=== PATIENT | female | born 1940 | race Hispanic/Latino ===

== ENCOUNTER 2017-07-12 21:47 | Inpatient (IN) | payer BC, MEDICARE ==
[2017-07-12 11:29] VITALS: BMI 25.7
--- NOTE | 2017-07-12 22:04 | ED PDOC ---
Psych Transfer Clearance - Clearance Statement Clearance Statement: Reviewed vital signs, lab results and transfer papers. Patient clinically stable for psychiatric admission.
--- NOTE | 2017-07-13 00:17 | PCM.BM ---
<Jesu Gutierrez - Last Filed: 07/13/17 00:51> Treatment Plan Problems - Problems identified on initial assessmt Visual Hallucinations Date Initiated: 07/13/17 Time Initiated: 00:16 Assessment reference: NA Status: Active Treatment assets and liabiliti Patient Assests: adapts well, cooperative, good support system, negotiates basic needs Patient Liabilities: medical problems, imparied memory, visual impairment - Milieu Protocol Maintain good personal hygiene: daily Encourage regular showers, daily Remind patient to perform daily oral care, daily Assist patient to perform ADL's Maintain personal safety: every shift Educate patient to report safety concerns to staff, every shift Monitor environment for contraband/sharps Medication safety: Monitor for expected outcome, potential side effects: every shift, Assess barriers to learning: every shift, Assess readiness for medication education: every shift <Saskia Broussard - Last Filed: 07/14/17 12:46> - Diagnosis (1) Schizophrenia Status: Acute Interventions: Medication management, Individual and group therapy, Psychoeducation 07/14/17 12:46 <Leona Pan - Last Filed: 07/14/17 14:58> Family Contact Family contact: Patient agrees to contact Family contact name: Song Dorman (brother) - Outside Agency Dr. Butch Lr MD Care involvment: Information-sharing Agency contact number: [phone] - Goals for Treatment Patient goals for treatment: Pt to be encouraged to attend activity and clinical groups 3-5x per week to decrease symptoms of paranoia, delusions and employ reality testing. Pt to be encouraged to participate in group milieu to develop coping skills to reduce psychiatric hospitalizations and further decompensation. Coordinate discharge resources needs by providing referral for psychiatric treatment follow up in the community. Discharge/Continuing Care - Education Needs Education Needs: Family Medication, Family Diagnosis/Disease Process, Family Coping Skills, Family Placement options, Family Community resources, Family Personal Hygiene/Grooming, Family Aftercare Safety Plan, Patient Medication, Patient Diagnosis/Disease Process, Patient Coping Skills, Patient Placement options, Patient Community resources, Patient Personal Hygiene/Grooming, Patient Aftercare Safety Plan - Discharge Discharge Criteria: Tolerates medication w/o severe side effects, Free of paranoid thoughts, Normal sleep pattern, Ability to care for self, Reduction of target symptoms Discharge to:: Home, With Family - Additional Comments 07/14/17 14:53 Pt seen and discussed in team meeting. Reason for admission discussed. Pt's progress and bx on unit discussed. Pt's medical and social issues discussed. Pt' s medications reviewed and discussed. Pt presents with disorganized and paranoid thought process. Pt is nonlinear and rambling speech. Pt requires frequent re-direction and re-assurance. Tx plan reviewed and discussed, pt is agreeable. Pt signed autho for marketing copywriter to contact brotherSong for additional collateral information. - Treatment Team Participation Discussed with Family/SO: No (Will be contacted via telephone) Was Patient/Family/SO present at Treatment Team Meeting: Yes
[2017-07-13] MEDS ORDERED: Magnesium Hydroxide Susp 30 ml UD PO PRN (00:57)
[2017-07-13] MEDS ORDERED: Bismuth Subsalicylate 262 mg/15 ml Sus (240 ml) PO PRN (00:57)
[2017-07-13 11:36] LABS: T4 10.7 ug/dl (5.5-11.0)
[2017-07-13 11:50] LABS: THYROID STIMULATING HORMONE 1.57 mIU/ML (0.46-4.68)
--- NOTE | 2017-07-13 12:25 | PCM.PSYCH ---
Initial Psychiatric Evaluation - Initial Psychiatric Evaluation Type of Admission: Voluntary Legal Status: Capacity Chief Complaint (in patient's own words): i am confused Patient's Reaction to Hospitalization: pt is very anxious History of Present Illness and Precipitating Events: This is the 1st 3NS admission for this 76 yr old female with h/o schizophrenia seeing dr kim who referred pt to [facility] for psych evaluation as pt has been increasingly confused,disorganized and delusional and also diagnosed with UTI which has further worsened the psychosis .pt was given one dose of macrobid at [facility].pt is currently presribed zyprexa 5mg hs and remeron 30 mg hs Current Medications: Active Medications Generic Name Dose Route Start Last Admin Trade Name Freq PRN Reason Stop Dose Admin Acetaminophen 650 mg 07/13/17 00:57 Tylenol 325mg Tab PO Q4 PRN Pain, moderate (4-7) Al Hydrox/Mg Hydrox/Simethicone 30 ml 07/13/17 00:57 Maalox Plus 30 Ml PO Q4 PRN Dyspepsia Alprazolam 1 mg 07/13/17 13:00 Xanax PO TID JEISON Atorvastatin Calcium 10 mg 07/13/17 22:00 Lipitor PO HS JEISON Bismuth Subsalicylate 524 mg 07/13/17 00:57 Pepto-Bismol PO Q4 PRN Diarrhea Lorazepam 0.5 mg 07/13/17 00:57 Ativan PO 07/27/17 00:58 HS PRN Insomnia Lorazepam 0.5 mg 07/13/17 00:57 07/13/17 02:21 Ativan PO 07/27/17 00:58 0.5 mg Q6 PRN Administration Anixety/Agitation Magnesium Hydroxide 30 ml 07/13/17 00:57 Milk Of Magnesia PO HS PRN Constipation Mirtazapine 30 mg 07/13/17 22:00 Remeron PO HS JEISON Olanzapine 5 mg 07/13/17 22:00 Zyprexa PO HS JEISON Past Psychiatric History - Past Psychiatric History At [facility]: pt has hospitalizations in past Nature of Treatment: for schizophrenia History of Abuse: not reported History of ETOH/Drug Use: not reported History of Family Illness: not known Pertinent Medical Hx (Current Medical&Sleep Prob, Allergies): Allergies Allergy/AdvReac Type Severity Reaction Status Date / Time codeine Allergy Verified 07/12/17 11:10 ALPRAZolam [Xanax] 1 mg PO TID 06/20/17 Rosuvastatin Calcium 40 mg PO HS 07/12/17 Mirtazapine [Remeron] 30 mg PO HS 07/13/17 Nitrofurantoin Macrocrystals [Macrobid] 100 mg PO 07/13/17 Olanzapine [Zyprexa] 5 mg PO HS 07/13/17 h/o UTI Review of Systems - Review of Systems All systems: reviewed and no additional remarkable complaints except Mental Status Examination - Personal Presentation Personal Presentation: Looks stated age - Affect Affect: Flat - Motor Activity Motor Activity: Other - Reliability in Providing Information Reliability in Providing Information: Poor, due to alteration in thoughts - Speech Speech: Disorganized - Mood Mood: Anxious - Formal Thought Process Formal Thought Process: Delusions, Paranoia - Obsessions/Compulsions Obsessions: No Compulsions: No - Cognitive Functions Orientation: Person Sensorium: Alert Attention/Concentration: Easily distracted Abstract Thinking: [place] Estimate of Intelligence: Average Judgement: Imparied, as evidence by: Poor judgement, Imparied, as evidence by: Lack of insight into illness Memory: Recent impaired, as evidence by: Inability to recall events of the day, Remote impaired as evidenced by: Inability to recall historical events - Risk Risk: Diminished functioning - Strength & Assets Inventory Strength & Assets Inventory: Family support DSM 5 DX - DSM 5 DSM 5 Diagnosis: schizophrenia ,paranoid type s/p delirium due to UTI 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 will closely monitor pt for agitation. Medical consult to start her on the right meds for UTI as pharmacy called saying that macrobid is contraindicated due to her low creatinine cleareance and macrobid was d/c
[2017-07-13 15:14] LABS: FOLATE 18.3 ng/mL
[2017-07-13 16:06] LABS: RBC URINE 9 /hpf (0-3); URINE BACTERIA RARE (<OCC); URINE BILIRUBIN NEGATIVE (NEGATIVE); URINE BLOOD NEGATIVE (NEGATIVE); URINE COLOR YELLOW (YELLOW); URINE GLUCOSE (UA) 50 mg/dL (Normal); URINE KETONE TRACE mg/dL (NEGATIVE); URINE LEUKOCYTE ESTERASE MOD Leu/uL (Negative); URINE PROTEIN NEGATIVE (NEGATIVE); URINE UROBILINOGEN 0.2-1.0 mg/dL (0.2-1.0); WBC URINE 18 /hpf (0-5)
[2017-07-14] MEDS: Alum-Mag Hydrox-Simethicone Susp (30 mL) PO PRN (06:41)
--- NOTE | 2017-07-14 12:55 | PCM.PYCHPN ---
Psychiatric Progress Note - Psychiatric Progress Note Patient seen today, length of contact: Patient evaluated, case discussed with team, chart reviewed, 35 min Patient Chief Complaint: "I don't trust them." Problems Identified/Issues Discussed: Patient is disorganized and paranoid. She can not give a good history about why she is in the hospital. She reports various paranoid ideations and is eating minimally due to paranoia about her food being contaminated. Patient was offered Ensure. She has poor insight at this time and may also have cognitive deficits. Patient is currently being treated for a UTI w/ Cipro. Medication Change: Yes (Taper Xanax, Increase Zyprexa to 7.5 mg PO HS) Medical Record Reviewed: Yes Consults ordered or reviewed: Psychology consult ordered to evaluated neurocognitive function Mental Status Examination - Cognitive Function Orientation: Person Memory: Impaired Concentration: Poor Association: Loose Fund of Knowledge: Poor Decription of patient's judgement and insights: Poor I/J - Mood Mood: Anxious - Affect Affect: Flat - Formal Thought Process Formal Thought Process: Delusions, Paranoia Psychotic Thoughts and Behaviors: +Paranoia/ Persecutory delusions - Suicidal Ideation Suicidal Ideation: No - Homicidal Ideation Homicidal Ideation: No Goal/Treatment Plan - Goal/Treatment Plan Need for Continued Stay: Remain at risks for inpatient hospitalization, Discharge may exacerbated symptoms, Severe functional impairment Progress Toward Problem(s) and Goals/Treatment Plan: Schizophrenia; r/o dementia; patient is acutely decompensated, psychotic and may also has cognitive deficits -Increase Zyprexa to 7.5 mg PO HS -Continue Cipro for UTI -Taper Xanax -Psychology consult to evaluate for neurocognitive function -Continue Remeron Estimated Date of D/C: 07/18/17
--- NOTE | 2017-07-15 09:55 | PCM.PYCHPN ---
Psychiatric Progress Note - Psychiatric Progress Note Patient seen today, length of contact: Patient evaluated, case discussed with team, chart reviewed, 35 min Patient Chief Complaint: "I don't trust them." Problems Identified/Issues Discussed: Patient continues to be disorganized and paranoid. She can not give a good history about why she is in the hospital. She is worried that her food is being poisoned, but has been observed eating and she is also drinking Ensure. She has poor insight at this time and likely has cognitive deficits. Patient is currently being treated for a UTI w/ Cipro. Medication Change: Yes (Taper Xanax) Medical Record Reviewed: Yes Mental Status Examination - Cognitive Function Orientation: Person Memory: Impaired Concentration: Poor Association: Loose Fund of Knowledge: Poor Decription of patient's judgement and insights: Poor I/J - Mood Mood: Anxious - Affect Affect: Constricted - Formal Thought Process Formal Thought Process: Delusions, Paranoia Psychotic Thoughts and Behaviors: +Paranoia/ Persecutory delusions - Suicidal Ideation Suicidal Ideation: No - Homicidal Ideation Homicidal Ideation: No Goal/Treatment Plan - Goal/Treatment Plan Need for Continued Stay: Remain at risks for inpatient hospitalization, Discharge may exacerbated symptoms, Severe functional impairment Progress Toward Problem(s) and Goals/Treatment Plan: Schizophrenia; r/o dementia; patient is acutely decompensated, psychotic and likely has cognitive deficits -Continue Zyprexa 7.5 mg PO HS -Continue Cipro for UTI -Taper Xanax -Continue Remeron Estimated Date of D/C: 07/18/17
--- NOTE | 2017-07-16 11:37 | PCM.PYCHPN ---
Psychiatric Progress Note - Psychiatric Progress Note Patient seen today, length of contact: Patient evaluated, case discussed with team, chart reviewed, 35 min Patient Chief Complaint: "I don't trust them." Problems Identified/Issues Discussed: Patient continues to be disorganized and paranoid. Her appetite has improved and she is drinking ensure. She has poor insight at this time and likely has cognitive deficits. Patient is currently being treated for a UTI w/ Cipro. Medication Change: Yes (Taper Xanax) Medical Record Reviewed: Yes Mental Status Examination - Cognitive Function Orientation: Person Memory: Impaired Concentration: Poor Association: Loose Fund of Knowledge: Poor Decription of patient's judgement and insights: Poor I/J - Mood Mood: Anxious - Affect Affect: Constricted - Formal Thought Process Formal Thought Process: Delusions, Paranoia Psychotic Thoughts and Behaviors: +Paranoia/ Persecutory delusions - Suicidal Ideation Suicidal Ideation: No - Homicidal Ideation Homicidal Ideation: No Goal/Treatment Plan - Goal/Treatment Plan Need for Continued Stay: Remain at risks for inpatient hospitalization, Discharge may exacerbated symptoms, Severe functional impairment Progress Toward Problem(s) and Goals/Treatment Plan: Schizophrenia; r/o dementia; patient is acutely decompensated, psychotic and likely has cognitive deficits -Increase Zyprexa to 10 mg PO HS -Continue Cipro for UTI -Taper Xanax -Continue Remeron Estimated Date of D/C: 07/21/17
--- NOTE | 2017-07-17 09:42 | PCM.PYCHPN ---
Psychiatric Progress Note - Psychiatric Progress Note Patient seen today, length of contact: Patient evaluated, case discussed with team, chart reviewed, 35 min Patient Chief Complaint: "I don't trust them." Problems Identified/Issues Discussed: No significant events overnight. Patient continues to be disorganized and paranoid. She has poor insight at this time and likely has cognitive deficits. Patient is currently being treated for a UTI w/ Cipro. No adverse effects to medications reported. Medication Change: Yes (Taper Xanax) Medical Record Reviewed: Yes Mental Status Examination - Cognitive Function Orientation: Person Memory: Impaired Concentration: Poor Association: Loose Fund of Knowledge: Poor Decription of patient's judgement and insights: Poor I/J - Mood Mood: Anxious - Affect Affect: Constricted - Formal Thought Process Formal Thought Process: Delusions, Paranoia Psychotic Thoughts and Behaviors: +Paranoia/ Persecutory delusions - Suicidal Ideation Suicidal Ideation: No - Homicidal Ideation Homicidal Ideation: No Goal/Treatment Plan - Goal/Treatment Plan Need for Continued Stay: Remain at risks for inpatient hospitalization, Discharge may exacerbated symptoms, Severe functional impairment Progress Toward Problem(s) and Goals/Treatment Plan: Schizophrenia; r/o dementia; patient is acutely decompensated, psychotic and likely has cognitive deficits -Continue Zyprexa 10 mg PO HS -Continue Cipro for UTI -Taper Xanax -Continue Remeron Estimated Date of D/C: 07/21/17 - Smoking Cessation Smoking Cessation Initiated: No Reason for not providing: Not indicated
--- NOTE | 2017-07-18 08:16 | PCM.PYCHPN ---
Psychiatric Progress Note - Psychiatric Progress Note Patient seen today, length of contact: Patient evaluated, case discussed with team, chart reviewed, 35 min Patient Chief Complaint: "I don't trust them." Problems Identified/Issues Discussed: No significant events overnight. Patient seems to be slightly more organized on conversation, but continues to be circumstantial, tangential and/or loose at times. She continues to be paranoid. She has poor insight at this time and likely has cognitive deficits. Patient is currently being treated for a UTI w/ Cipro. No adverse effects to medications reported. Medication Change: Yes (Stop Xanax) Medical Record Reviewed: Yes Mental Status Examination - Cognitive Function Orientation: Person Memory: Impaired Concentration: Poor Association: Loose Fund of Knowledge: Poor Decription of patient's judgement and insights: Poor I/J - Mood Mood: Anxious - Affect Affect: Constricted - Formal Thought Process Formal Thought Process: Delusions, Paranoia, Loosening of associations Psychotic Thoughts and Behaviors: +Paranoia/ Persecutory delusions - Suicidal Ideation Suicidal Ideation: No - Homicidal Ideation Homicidal Ideation: No Goal/Treatment Plan - Goal/Treatment Plan Need for Continued Stay: Remain at risks for inpatient hospitalization, Discharge may exacerbated symptoms, Severe functional impairment Progress Toward Problem(s) and Goals/Treatment Plan: Schizophrenia; r/o dementia; patient is acutely decompensated, psychotic and likely has cognitive deficits -Continue Zyprexa 10 mg PO HS -Continue Cipro for UTI -Stop Xanax -Continue Remeron Estimated Date of D/C: 07/21/17
--- NOTE | 2017-07-18 15:00 | CP.PCM.CON ---
History of Present Illness - History of Present Illness History of Present Illness: 76 YO F w/ PMH of UTI's, Asthma, Hyperlipidemia, Depression, schizophrenia is a patient which has been transferred for inpatient psych admission. Patient has a history of UTI her most recent diagnosed UTI was on 06/20/17 caused by Cornybacterium. - Medicine team is being consulted for the patient complaining of burning during urination. She initially was having trouble urinating, but now is complaining of burning during urination. As per nurse the patient had to be straight Cather because she did not urinate over 12 hours , four days ago. Since the Cipro was started the patient has been urinating on her own, but has been having burning during urination since yesterday. Urine Culture was taken recently and does not show any growth on 07/12/17. Patient was put on Cipro for symptoms of UTI. Patient denies any fever, chills nausea or vomiting. PMH Asthma on inhalers UTI recurrent: Documented 03/06/16, 07/26/16, 06/20/17 Depression schizophrenia Hyperlipidemia PSH:appendectomy Allergies: Denies Past Patient History - Infectious Disease Hx of Infectious Diseases: None - Tetanus Immunizations Tetanus Immunization: Unknown - Past Medical History & Family History Past Medical History?: Yes - Past Social History Smoking Status: Never Smoked - CARDIAC Hx Hypercholesterolemia: Yes - PULMONARY Hx Asthma: Yes - NEUROLOGICAL HX Cerebrovascular Accident: No Hx Seizures: No - HEENT Hx HEENT Problems: Yes Hx Cataracts: Yes - RENAL Hx Chronic Kidney Disease: No - ENDOCRINE/METABOLIC Hx Endocrine Disorders: No - HEMATOLOGICAL/ONCOLOGICAL Hx Cancer: No Hx Human Immunodeficiency Virus (HIV): No - INTEGUMENTARY Hx Dermatological Problems: No - MUSCULOSKELETAL/RHEUMATOLOGICAL Hx Arthritis: Yes (r knee fx) Hx Falls: Yes Hx Fractures: Yes (right knee) Hx Osteoporosis: Yes Hx Rheumatoid Arthritis: Yes - GASTROINTESTINAL Hx Gastrointestinal Disorders: Yes Hx Bowel Surgery: Yes (intestinal obstruction(?)) - GENITOURINARY/GYNECOLOGICAL Hx Sexually Transmitted Disorders: No - PSYCHIATRIC Hx Anxiety: Yes Hx Depression: Yes Hx Substance Use: No - SURGICAL HISTORY Hx Appendectomy: Yes Hx Tonsillectomy: Yes - ANESTHESIA Hx Anesthesia: Yes Hx Anesthesia Reactions: No Hx Malignant Hyperthermia: No Meds Allergies/Adverse Reactions: Allergies Allergy/AdvReac Type Severity Reaction Status Date / Time codeine Allergy Verified 07/12/17 11:10 - Medications Medications: Current Medications Acetaminophen (Tylenol 325mg Tab) 650 mg PO Q4 PRN PRN Reason: Pain, moderate (4-7) Al Hydrox/Mg Hydrox/Simethicone (Maalox Plus 30 Ml) 30 ml PO Q4 PRN PRN Reason: Dyspepsia Last Admin: 07/14/17 06:41 Dose: 30 ml Atorvastatin Calcium (Lipitor) 10 mg PO HS [facility] Last Admin: 07/17/17 21:26 Dose: 10 mg Bismuth Subsalicylate (Pepto-Bismol) 524 mg PO Q4 PRN PRN Reason: Diarrhea Ciprofloxacin (Cipro) 500 mg PO Q12 JEISON PRN Reason: Protocol Last Admin: 07/18/17 09:30 Dose: 500 mg Lorazepam (Ativan) 0.5 mg PO HS PRN PRN Reason: Insomnia Stop: 07/27/17 00:58 Last Admin: 07/15/17 23:13 Dose: 0.5 mg Lorazepam (Ativan) 0.5 mg PO Q6 PRN PRN Reason: Anixety/Agitation Stop: 07/27/17 00:58 Last Admin: 07/18/17 12:43 Dose: 0.5 mg Magnesium Hydroxide (Milk Of Magnesia) 30 ml PO HS PRN PRN Reason: Constipation Mirtazapine (Remeron) 30 mg PO [facility] Last Admin: 07/17/17 21:26 Dose: 30 mg Olanzapine (Zyprexa) 10 mg PO [facility] Last Admin: 07/17/17 21:26 Dose: 10 mg Physical Exam - Constitutional Appears: No Acute Distress - Head Exam Head Exam: NORMAL INSPECTION - Respiratory Exam Respiratory Exam: Clear to Auscultation Bilateral, NORMAL BREATHING PATTERN. absent: Rhonchi, Wheezes - Cardiovascular Exam Cardiovascular Exam: REGULAR RHYTHM, +S1, +S2 - GI/Abdominal Exam Additional comments: super pubic tenderness - Extremities Exam Extremities exam: Positive for: normal inspection - Back Exam Back exam: CVA tenderness (L) - Neurological Exam Additional comments: Baseline dementia - Skin Skin Exam: Normal Color, Warm Results - Vital Signs Recent Vital Signs: Last Vital Signs Temp 98.1 F 07/18/17 06:00 Pulse 85 07/18/17 06:00 Resp 18 07/18/17 06:00 BP 123/75 07/18/17 06:00 Pulse Ox 97 07/12/17 21:52 Assessment & Plan - Assessment and Plan (Free Text) Assessment: 1) H/O UTI - Finish Cipro course: total of 7 days - F/U with U/A and urine culture, CBC, CMP - Kidney and Bladder U/S
[2017-07-18 16:13] LABS: BASO # 0.1 K/uL (0.0-0.2); BASO % 0.7 % (0.0-2.0); EOS % 0.1 % (0.0-4.0); HEMATOCRIT 40.5 % (34.0-47.0); LYMPH # 0.7 K/uL (1.0-4.3); LYMPH % 7.4 % (20.0-40.0); MEAN CORPUSCULAR HEMOGLOBIN 32.7 pg (27.0-31.0); MEAN CORPUSCULAR HGB CONC 34.8 g/dL (33.0-37.0); MEAN PLATELET VOLUME 6.9 fl (7.2-11.7); MONO # 0.5 K/uL (0.0-0.8); MONO % 5.3 % (0.0-10.0); NEUT # 8.3 K/uL (1.8-7.0); NEUT % 86.5 % (50.0-75.0); PLATELET COUNT 368 K/uL (130-400); RED CELL DISTRIBUTION WIDTH 14.6 % (11.5-14.5); WHITE BLOOD COUNT 9.6 K/uL (4.8-10.8)
[2017-07-18 16:39] LABS: ALB/GLOB RATIO 1.6 (1.0-2.1); ALKALINE PHOSPHATASE 86 U/L (38-126); ALT/SGPT 35 U/L (9-52); AST/SGOT 26 U/L (14-36); BILIRUBIN,TOTAL 0.5 mg/dl (0.2-1.3); BLOOD UREA NITROGEN 18 mg/dl (7-17); CALCIUM 9.2 mg/dL (8.4-10.2); CARBON DIOXIDE 26 mmol/L (22-30); CHLORIDE 102 mmol/L (98-107); GFR AFRICAN-AMERICAN > 60; GLUCOSE,RANDOM 147 mg/dL (65-105); POTASSIUM 4.4 MMOL/L (3.6-5.0); SODIUM 140 mmol/l (132-148)
[2017-07-18 17:44] LABS: LARGE PLATELETS PRESENT; MYELOCYTE 1 % (0-0); NEUTROPHIL 83 % (42-75); TOTAL CELLS COUNTED 100
[2017-07-18 18:44] LABS: RBC URINE 4 /hpf (0-3); URINE BACTERIA MOD (<OCC); URINE BILIRUBIN NEGATIVE (NEGATIVE); URINE BLOOD NEGATIVE (NEGATIVE); URINE COLOR YELLOW (YELLOW); URINE GLUCOSE (UA) NEG (Normal); URINE KETONE NEGATIVE (NEGATIVE); URINE LEUKOCYTE ESTERASE LARGE Leu/uL (Negative); URINE PROTEIN NEGATIVE (NEGATIVE); URINE UROBILINOGEN 0.2-1.0 mg/dL (0.2-1.0); WBC URINE 96 /hpf (0-5)
[2017-07-18] MEDS: Alum-Mag Hydrox-Simethicone Susp (30 mL) PO PRN (22:31)
--- NOTE | 2017-07-19 15:06 | PCM.PYCHPN ---
Psychiatric Progress Note - Psychiatric Progress Note Patient seen today, length of contact: Patient evaluated, case discussed with team, chart reviewed, 35 min Patient Chief Complaint: was not feeling myself burning with urination, staff report pt continues to be paranoid with flight of ideas. received prn ativan 3am today for anxiety insomnia. pt was seen by remediation consultant medicine for uti. Problems Identified/Issues Discussed: alteration in thought alteration in mood' alteration in sleep Medical Problems: uti Diagnostic Results: per psychiatry per medicine per nursing per social social DSM 5 Symptoms Update: isolution, insomnia, anhedonia Medication Change: No Medical Record Reviewed: Yes Consults ordered or reviewed: medical consult for uti Mental Status Examination - Cognitive Function Orientation: Person Memory: Impaired Concentration: Poor Association: Loose Fund of Knowledge: Poor Decription of patient's judgement and insights: impaired - Mood Mood: Depressed - Affect Affect: Constricted - Speech Speech: Soft - Formal Thought Process Formal Thought Process: Delusions, Paranoia, Loosening of associations - Suicidal Ideation Suicidal Ideation: No - Homicidal Ideation Homicidal Ideation: No Goal/Treatment Plan - Goal/Treatment Plan Need for Continued Stay: Remain at risks for inpatient hospitalization, Discharge may exacerbated symptoms, Severe functional impairment Progress Toward Problem(s) and Goals/Treatment Plan: inpt admission vital signs and clinical observation per protocol and per clinical status adjust meds per status medical follow up per clinical status discharge planning per clinical status Estimated Date of D/C: 07/22/17 - Smoking Cessation Smoking Cessation Initiated: No Reason for not providing: defers
[2017-07-20] MEDS: Alum-Mag Hydrox-Simethicone Susp (30 mL) PO PRN (00:46)
--- NOTE | 2017-07-20 11:56 | US ---
PROCEDURE: Ultrasound of the Kidneys HISTORY: reccurent uti COMPARISON: None available. TECHNIQUE: Sonogram of the kidneys. FINDINGS: RIGHT KIDNEY: Measures: 9.5 x 5.2 x 4.6 cm. There is grossly normal echogenicity of the right kidney with mild lobulated contour. No stone, solid mass lesion or hydronephrosis visualized. LEFT KIDNEY: Measures: 10.2 x 5.0 x 4.2 cm. Normal in size, contour and echogenicity. No stone, solid mass lesion or hydronephrosis visualized. OTHER FINDINGS: None. IMPRESSION: No evidence of hydronephrosis.
--- NOTE | 2017-07-20 11:57 | US ---
PROCEDURE: Ultrasound of the Bladder HISTORY: recccurent uti/ COMPARISON: None available. TECHNIQUE: Sonographic evaluation of the bladder was performed. FINDINGS: Unremarkable without wall thickening or intraluminal debris. No calculus or gross mass lesion. No free fluid in pelvis. Ureteral jets were identified bilaterally. Prevoid Volume: 287 cc. Post void residual: 162 cc. IMPRESSION: Large postvoid residual.
--- NOTE | 2017-07-20 14:15 | CP.PCM.CON ---
History of Present Illness - History of Present Illness History of Present Illness: Pt is a 76 year female well known to the creative services writer from her [facility] rehab admissions at . Pt referred to the creative services writer for cognitive testing. On the DRS , pt scored an overall score of 79. (125= = intact cognitive skills) She scored in Deficient Range on all tasks. Pt's Attention, Construction, Conceptualization, Memory and Initiation skills all fell in the Deficient Range. Note, patient resides with her brother who is at home throughout the day. Recommendation Homemaker services to assist the patient- Supervision to ensure safety Thank you for this referral Dr. Lopez Past Patient History - Infectious Disease Hx of Infectious Diseases: None - Tetanus Immunizations Tetanus Immunization: Unknown - Past Medical History & Family History Past Medical History?: Yes - Past Social History Smoking Status: Never Smoked - CARDIAC Hx Hypercholesterolemia: Yes - PULMONARY Hx Asthma: Yes - NEUROLOGICAL HX Cerebrovascular Accident: No Hx Seizures: No - HEENT Hx HEENT Problems: Yes Hx Cataracts: Yes - RENAL Hx Chronic Kidney Disease: No - ENDOCRINE/METABOLIC Hx Endocrine Disorders: No - HEMATOLOGICAL/ONCOLOGICAL Hx Cancer: No Hx Human Immunodeficiency Virus (HIV): No - INTEGUMENTARY Hx Dermatological Problems: No - MUSCULOSKELETAL/RHEUMATOLOGICAL Hx Arthritis: Yes (r knee fx) Hx Falls: Yes Hx Fractures: Yes (right knee) Hx Osteoporosis: Yes Hx Rheumatoid Arthritis: Yes - GASTROINTESTINAL Hx Gastrointestinal Disorders: Yes Hx Bowel Surgery: Yes (intestinal obstruction(?)) - GENITOURINARY/GYNECOLOGICAL Hx Sexually Transmitted Disorders: No - PSYCHIATRIC Hx Anxiety: Yes Hx Depression: Yes Hx Substance Use: No - SURGICAL HISTORY Hx Appendectomy: Yes Hx Tonsillectomy: Yes - ANESTHESIA Hx Anesthesia: Yes Hx Anesthesia Reactions: No Hx Malignant Hyperthermia: No Meds Allergies/Adverse Reactions: Allergies Allergy/AdvReac Type Severity Reaction Status Date / Time codeine Allergy Verified 07/12/17 11:10 - Medications Medications: Current Medications Acetaminophen (Tylenol 325mg Tab) 650 mg PO Q4 PRN PRN Reason: Pain, moderate (4-7) Al Hydrox/Mg Hydrox/Simethicone (Maalox Plus 30 Ml) 30 ml PO Q4 PRN PRN Reason: Dyspepsia Last Admin: 07/20/17 00:46 Dose: 30 ml Atorvastatin Calcium (Lipitor) 10 mg PO HS JEISON Last Admin: 07/19/17 21:05 Dose: 10 mg Bismuth Subsalicylate (Pepto-Bismol) 524 mg PO Q4 PRN PRN Reason: Diarrhea Lorazepam (Ativan) 0.5 mg PO HS PRN PRN Reason: Insomnia Stop: 07/27/17 00:58 Last Admin: 07/19/17 23:32 Dose: 0.5 mg Lorazepam (Ativan) 0.5 mg PO Q6 PRN PRN Reason: Anixety/Agitation Stop: 07/27/17 00:58 Last Admin: 07/18/17 12:43 Dose: 0.5 mg Magnesium Hydroxide (Milk Of Magnesia) 30 ml PO HS PRN PRN Reason: Constipation Mirtazapine (Remeron) 30 mg PO HS JEISON Last Admin: 07/19/17 21:05 Dose: 30 mg Olanzapine (Zyprexa) 10 mg PO HS JEISON Last Admin: 07/19/17 21:05 Dose: 10 mg Phenazopyridine HCl (Pyridium) 100 mg PO TID JEISON Stop: 07/21/17 23:59 Last Admin: 07/20/17 12:52 Dose: 100 mg Results - Vital Signs Recent Vital Signs: Last Vital Signs Temp 97.3 F L 07/20/17 05:26 Pulse 81 07/20/17 05:26 Resp 18 07/20/17 05:26 BP 113/51 L 07/20/17 05:26 Pulse Ox 97 07/12/17 21:52 - Labs Result Diagrams: 07/18/17 16:09 07/18/17 16:09
--- NOTE | 2017-07-20 16:28 | PCM.PYCHPN ---
Psychiatric Progress Note - Psychiatric Progress Note Patient seen today, length of contact: Patient evaluated, case discussed with team, chart reviewed, 35 min Patient Chief Complaint: staff report pt adherent with treatment, seen about unit, confused anxiety received prn ativan, increased anxiety at night-paranoid with flight of ideas, confused that was going to receive ect(which was not mentioned at all as any part of treatment plan)(pt reportedly did have in past). was not feeling myself burning with urination, staff report pt continues to be paranoid with flight of ideas. received prn ativan 3am today for anxiety insomnia. pt was seen by [facility] consultant medicine for uti. Problems Identified/Issues Discussed: alteration in thought alteration in mood' alteration in sleep Medical Problems: uti Diagnostic Results: per psychiatry per medicine per nursing per social social DSM 5 Symptoms Update: alteration in mood alteration in cognition alteration in self care Medication Change: No Medical Record Reviewed: Yes Consults ordered or reviewed: pt being seen by gianluca, consult with dr mcgrath related to urine culture Mental Status Examination - Cognitive Function Orientation: Person Memory: Impaired Concentration: Poor Association: Loose Fund of Knowledge: Poor Decription of patient's judgement and insights: impaired - Mood Mood: Depressed - Affect Affect: Constricted - Speech Speech: Soft - Formal Thought Process Formal Thought Process: Delusions, Paranoia, Loosening of associations - Suicidal Ideation Suicidal Ideation: No - Homicidal Ideation Homicidal Ideation: No Goal/Treatment Plan - Goal/Treatment Plan Need for Continued Stay: Remain at risks for inpatient hospitalization, Discharge may exacerbated symptoms, Severe functional impairment Progress Toward Problem(s) and Goals/Treatment Plan: inpt admission vital signs and clinical observation per protocol and per clinical status adjust meds per status medical follow up per clinical status seen by dr hough, telephone consult dr felix telephone order meropenem 1gmIV Q12 ([id number] BUN 18 creat 0.9)-SPOKE WITH PHARMACY ELEAZAR FAY in am discharge planning per clinical status Estimated Date of D/C: 07/22/17 - Smoking Cessation Smoking Cessation Initiated: No Reason for not providing: PT DEFERS
[2017-07-20] MEDS: Meropenem 1 GM in Sodium Chloride 0.9% 100 ML IVPB SCH (20:43)
--- NOTE | 2017-07-20 23:05 | CP.PCM.PN ---
Subjective - Date & Time of Evaluation Date of Evaluation: 07/20/17 Time of Evaluation: 14:30 - Subjective Subjective: patient remains stable Has no fever. Note proteus sp on urine C and S resistant to all except meropenem and amikacin. Objective - Vital Signs/Intake and Output Vital Signs (last 24 hours): Temp Pulse Resp BP Pulse Ox 98.2 F 87 20 119/68 97 07/20/17 15:32 07/20/17 15:32 07/20/17 15:32 07/20/17 15:32 07/12/17 21:52 - Medications Medications: Current Medications Acetaminophen (Tylenol 325mg Tab) 650 mg PO Q4 PRN PRN Reason: Pain, moderate (4-7) Al Hydrox/Mg Hydrox/Simethicone (Maalox Plus 30 Ml) 30 ml PO Q4 PRN PRN Reason: Dyspepsia Last Admin: 07/20/17 00:46 Dose: 30 ml Atorvastatin Calcium (Lipitor) 10 mg PO HS JEISON Last Admin: 07/20/17 21:01 Dose: 10 mg Bismuth Subsalicylate (Pepto-Bismol) 524 mg PO Q4 PRN PRN Reason: Diarrhea Meropenem 1 gm/ Sodium (Chloride) 100 mls @ 100 mls/hr IVPB Q12 JEISON PRN Reason: Protocol Last Admin: 07/20/17 20:43 Dose: 100 mls/hr Lorazepam (Ativan) 0.5 mg PO HS PRN PRN Reason: Insomnia Stop: 07/27/17 00:58 Last Admin: 07/19/17 23:32 Dose: 0.5 mg Lorazepam (Ativan) 0.5 mg PO Q6 PRN PRN Reason: Anixety/Agitation Stop: 07/27/17 00:58 Last Admin: 07/20/17 15:04 Dose: 0.5 mg Magnesium Hydroxide (Milk Of Magnesia) 30 ml PO HS PRN PRN Reason: Constipation Mirtazapine (Remeron) 30 mg PO HS JEISON Last Admin: 07/20/17 21:02 Dose: 30 mg Olanzapine (Zyprexa) 10 mg PO HS JEISON Last Admin: 07/20/17 21:01 Dose: 10 mg Phenazopyridine HCl (Pyridium) 100 mg PO TID JEISON Stop: 07/21/17 23:59 Last Admin: 07/20/17 17:10 Dose: 100 mg - Labs Labs: 07/18/17 16:09 07/18/17 16:09
[2017-07-21] MEDS: Meropenem 1 GM in Sodium Chloride 0.9% 100 ML IVPB SCH ×2 (11:21→20:46)
--- NOTE | 2017-07-21 12:35 | PCM.PYCHPN ---
Psychiatric Progress Note - Psychiatric Progress Note Patient seen today, length of contact: Patient evaluated, case discussed with team, chart reviewed, 35 min Patient Chief Complaint: "I don't trust them." Problems Identified/Issues Discussed: Medicine consult appreciated. Patient was started on Meropenem IV due recurrent UTI. Patient continues to be paranoid and delusional. She continues to be circumstantial, tangential and/or loose at times. She has poor insight and cognitive impairment. Medication Change: No Medical Record Reviewed: Yes Consults ordered or reviewed: Psychology consult 07/20/17: Pt is a 76 year female well known to the greeting card writer from her [facility] rehab admissions at . Pt referred to the greeting card writer for cognitive testing. On the DRS , pt scored an overall score of 79. (125= = intact cognitive skills) She scored in Deficient Range on all tasks. Pt's Attention, Construction, Conceptualization, Memory and Initiation skills all fell in the Deficient Range. Note, patient resides with her brother who is at home throughout the day. Recommendation Homemaker services to assist the patient- Supervision to ensure safety Thank you for this referral Dr. Lopez ordered to evaluated neurocognitive function -Medicine consult- patient switched to IV Meropenem for UTI Mental Status Examination - Cognitive Function Orientation: Person Memory: Impaired Concentration: Poor Association: Loose Fund of Knowledge: Poor Decription of patient's judgement and insights: Poor I/J - Mood Mood: Depressed - Affect Affect: Constricted - Speech Speech: Soft - Formal Thought Process Formal Thought Process: Delusions, Paranoia, Loosening of associations Psychotic Thoughts and Behaviors: +Paranoia - Suicidal Ideation Suicidal Ideation: No - Homicidal Ideation Homicidal Ideation: No Goal/Treatment Plan - Goal/Treatment Plan Need for Continued Stay: Remain at risks for inpatient hospitalization, Discharge may exacerbated symptoms, Severe functional impairment Progress Toward Problem(s) and Goals/Treatment Plan: Schizophrenia; r/o dementia; patient is acutely decompensated, psychotic w/ cognitive deficits and current UTI, on IV antibiotics -Continue Zyprexa 10 mg PO HS -Continue Meropenem for UTI -Xanax stopped -Continue Remeron -Psychology and Medicine consults appreciated Estimated Date of D/C: 07/25/17
--- NOTE | 2017-07-21 16:32 | CARD ---
APPROVED REPORT EKG Measurement Heart [id number] <Conclusion> Normal sinus rhythm with sinus arrhythmia Normal ECG
--- NOTE | 2017-07-21 17:35 | CP.PCM.PN ---
Subjective - Date & Time of Evaluation Date of Evaluation: 07/21/17 Time of Evaluation: 17:33 - Subjective Subjective: I D NOTE PATIENT c PROTEUS MIRABILIS UTI THAT IS SENSITIVE TO CARAPENEMS ORDERED MEROPENEM ON 07/20/17 Objective - Vital Signs/Intake and Output Vital Signs (last 24 hours): Temp Pulse Resp BP Pulse Ox 97.1 F L 77 20 118/65 97 07/21/17 15:32 07/21/17 15:32 07/21/17 15:32 07/21/17 15:32 07/12/17 21:52 - Medications Medications: Current Medications Acetaminophen (Tylenol 325mg Tab) 650 mg PO Q4 PRN PRN Reason: Pain, moderate (4-7) Last Admin: 07/21/17 10:35 Dose: 650 mg Al Hydrox/Mg Hydrox/Simethicone (Maalox Plus 30 Ml) 30 ml PO Q4 PRN PRN Reason: Dyspepsia Last Admin: 07/20/17 00:46 Dose: 30 ml Atorvastatin Calcium (Lipitor) 10 mg PO HS JEISON Last Admin: 07/20/17 21:01 Dose: 10 mg Bismuth Subsalicylate (Pepto-Bismol) 524 mg PO Q4 PRN PRN Reason: Diarrhea Meropenem 1 gm/ Sodium (Chloride) 100 mls @ 100 mls/hr IVPB Q12 JEISON PRN Reason: Protocol Last Admin: 07/21/17 11:21 Dose: 100 mls/hr Lorazepam (Ativan) 0.5 mg PO HS PRN PRN Reason: Insomnia Stop: 07/27/17 00:58 Last Admin: 07/19/17 23:32 Dose: 0.5 mg Lorazepam (Ativan) 0.5 mg PO Q6 PRN PRN Reason: Anixety/Agitation Stop: 07/27/17 00:58 Last Admin: 07/21/17 02:40 Dose: 0.5 mg Magnesium Hydroxide (Milk Of Magnesia) 30 ml PO HS PRN PRN Reason: Constipation Mirtazapine (Remeron) 30 mg PO HS JEISON Last Admin: 07/20/17 21:02 Dose: 30 mg Olanzapine (Zyprexa) 10 mg PO HS JEISON Last Admin: 07/20/17 21:01 Dose: 10 mg Phenazopyridine HCl (Pyridium) 100 mg PO TID JEISON Stop: 07/21/17 23:59 Last Admin: 07/21/17 14:54 Dose: 100 mg - Labs Labs: 07/18/17 16:09 07/18/17 16:09
--- NOTE | 2017-07-22 04:34 | CON ---
INFECTIOUS DISEASE CONSULTATION DATE: HISTORY OF PRESENT ILLNESS: The patient is being seen in Geropsych at [facility]. The patient is a 76-year-old female with significant history of multiple UTIs, asthma, hyperlipidemia, depression, schizophrenia for which she is being treated at inpatient psych admission. Her most recent UTI was on 06/20 and was caused by Corynebacterium. The patient is complaining of burning on urination. She was initially complaining of having trouble urinating, but now it is mostly burning. Urine culture was taken now with straight cath, and she was found to have Proteus mirabilis that is only sensitive to carbapenems and aminoglycosides. PHYSICAL EXAMINATION: GENERAL: She is alert, somewhat confused, well fitting for the noted disease. HEENT: Within normal limits. NECK: Supple. LUNGS: Clear. HEART: Regular sinus rhythm. ABDOMEN: Soft. Positive bowel sounds. EXTREMITIES: No CCE. NEUROLOGIC: She has dementia. LABORATORY DATA: WBC 9.6, hemoglobin 14.1, platelet count 368, also has a left shift. Creatinine 0.9, GFR greater than 60, BUN is 18. Renal ultrasound is actually within normal limits as is the bladder ultrasound. IMPRESSION: Urinary tract infection, drug resistant. The patient is placed on meropenem 1 gram IV piggyback q. 12. Vasu Lackey MD
[2017-07-22 07:35] LABS: ALB/GLOB RATIO 1.4 (1.0-2.1); ALKALINE PHOSPHATASE 79 U/L (38-126); ALT/SGPT 30 U/L (9-52); AST/SGOT 29 U/L (14-36); BILIRUBIN,TOTAL 0.5 mg/dl (0.2-1.3); BLOOD UREA NITROGEN 16 mg/dl (7-17); CALCIUM 8.9 mg/dL (8.4-10.2); CARBON DIOXIDE 27 mmol/L (22-30); CHLORIDE 107 mmol/L (98-107); GFR AFRICAN-AMERICAN > 60; GLUCOSE,RANDOM 107 mg/dL (65-105); POTASSIUM 4.1 MMOL/L (3.6-5.0); SODIUM 141 mmol/l (132-148); TOTAL PROTEIN 6.1 G/DL (6.3-8.2)
[2017-07-22] MEDS: Meropenem 1 GM in Sodium Chloride 0.9% 100 ML IVPB SCH ×2 (08:37→20:54)
--- NOTE | 2017-07-22 08:41 | PCM.PYCHPN ---
Psychiatric Progress Note - Psychiatric Progress Note Patient seen today, length of contact: Patient evaluated, case discussed with team, chart reviewed, 35 min Patient Chief Complaint: "I don't trust them." Problems Identified/Issues Discussed: Medicine consult appreciated. ID consult appreciated. Patient on Meropenem IV for UTI. Patient continues to be paranoid and delusional. She continues to be circumstantial, tangential and/or loose at times. She has poor insight and cognitive impairment. Medication Change: Yes (Start Clonazepam 0.25 mg PO HS) Medical Record Reviewed: Yes Consults ordered or reviewed: Psychology consult 07/20/17: Pt is a 76 year female well known to the freelance writer from her [facility] rehab admissions at . Pt referred to the freelance writer for cognitive testing. On the DRS , pt scored an overall score of 79. (125= = intact cognitive skills) She scored in Deficient Range on all tasks. Pt's Attention, Construction, Conceptualization, Memory and Initiation skills all fell in the Deficient Range. Note, patient resides with her brother who is at home throughout the day. Recommendation Homemaker services to assist the patient- Supervision to ensure safety Thank you for this referral Dr. Lopez ordered to evaluated neurocognitive function -Medicine consult- patient switched to IV Meropenem for UTI Mental Status Examination - Cognitive Function Orientation: Person Memory: Impaired Concentration: Poor Association: Loose Fund of Knowledge: Poor Decription of patient's judgement and insights: Poor I/J - Mood Mood: Anxious - Affect Affect: Constricted - Speech Speech: Soft - Formal Thought Process Formal Thought Process: Delusions, Paranoia, Loosening of associations Psychotic Thoughts and Behaviors: +Paranoia - Suicidal Ideation Suicidal Ideation: No - Homicidal Ideation Homicidal Ideation: No Goal/Treatment Plan - Goal/Treatment Plan Need for Continued Stay: Remain at risks for inpatient hospitalization, Discharge may exacerbated symptoms, Severe functional impairment Progress Toward Problem(s) and Goals/Treatment Plan: Schizophrenia; r/o dementia; patient is acutely decompensated, psychotic w/ cognitive deficits and current UTI, on IV antibiotics -Continue Zyprexa 10 mg PO HS -Continue Meropenem for UTI -Start Klonopin 0.25 mg PO QHS -Continue Remeron -Psychology and Medicine consults appreciated Estimated Date of D/C: 07/25/17
--- NOTE | 2017-07-22 16:01 | PCM.BM ---
Treatment Plan Problems - Problems identified on initial assessmt Auditory Hallucinations Date Initiated: 07/13/17 Time Initiated: 00:16 Assessment reference: NA Status: Active Visual Hallucinations Date Initiated: 07/13/17 Time Initiated: 00:16 Assessment reference: NA Status: Active Treatment assets and liabiliti Patient Assests: adapts well, cooperative, good support system, negotiates basic needs Patient Liabilities: medical problems, imparied memory, visual impairment - Milieu Protocol Maintain good personal hygiene: daily Encourage regular showers, daily Remind patient to perform daily oral care, daily Assist patient to perform ADL's Maintain personal safety: every shift Educate patient to report safety concerns to staff, every shift Monitor environment for contraband/sharps Medication safety: Monitor for expected outcome, potential side effects: every shift, Assess barriers to learning: every shift, Assess readiness for medication education: every shift Milieu Narrative: Schizophrenia; r/o dementia; patient is acutely decompensated, psychotic w/ cognitive deficits and current UTI, on IV antibiotics -Continue Zyprexa 10 mg PO HS -Continue Meropenem for UTI -Start Klonopin 0.25 mg PO QHS -Continue Remeron -Psychology and Medicine consults appreciated Family Contact Family contact: Patient agrees to contact Family contact name: Song Dorman (brother) - Outside Agency Dr. Butch Lr MD Care involvment: Information-sharing Agency contact number: [phone] - Goals for Treatment Patient goals for treatment: Pt to be encouraged to attend activity and clinical groups 3-5x per week to decrease symptoms of paranoia, delusions and employ reality testing. Pt to be encouraged to participate in group milieu to develop coping skills to reduce psychiatric hospitalizations and further decompensation. Coordinate discharge resources needs by providing referral for psychiatric treatment follow up in the community. Discharge/Continuing Care - Education Needs Education Needs: Family Medication, Family Diagnosis/Disease Process, Family Coping Skills, Family Placement options, Family Community resources, Family Personal Hygiene/Grooming, Family Aftercare Safety Plan, Patient Medication, Patient Diagnosis/Disease Process, Patient Coping Skills, Patient Placement options, Patient Community resources, Patient Personal Hygiene/Grooming, Patient Aftercare Safety Plan - Discharge Discharge Criteria: Tolerates medication w/o severe side effects, Free of paranoid thoughts, Normal sleep pattern, Ability to care for self, Reduction of target symptoms Discharge to:: Home, With Family - Additional Comments 07/14/17 14:53 Pt seen and discussed in team meeting. Reason for admission discussed. Pt's progress and bx on unit discussed. Pt's medical and social issues discussed. Pt' s medications reviewed and discussed. Pt presents with disorganized and paranoid thought process. Pt is nonlinear and rambling speech. Pt requires frequent re-direction and re-assurance. Tx plan reviewed and discussed, pt is agreeable. Pt signed autho for comic book writer to contact brotherSong for additional collateral information. - Treatment Team Participation Patient/Family/SO Statement: Schizophrenia; r/o dementia; patient is acutely decompensated, psychotic w/ cognitive deficits and current UTI, on IV antibiotics -Continue Zyprexa 10 mg PO HS -Continue Meropenem for UTI -Start Klonopin 0.25 mg PO QHS -Continue Remeron -Psychology and Medicine consults appreciated Discussed with Family/SO: No (Will be contacted via telephone) Was Patient/Family/SO present at Treatment Team Meeting: Yes Treatment Plan Review - Problem Auditory Hallucinations Time Initiated: 00:16 Progress toward outcomes: unchanged Visual Hallucinations Time Initiated: 00:16 Progress toward outcomes: unchanged - Discharge / Continuing Care Discharge to:: Home, With Family Behavioral Health Services: Outpatient therapy, Home health care, Adult day care , Other (Medication Management) Health Needs: Follow up care/test, Doctor appointments, Nutritional, Medications /Rx, Educational, Recreational/Social
[2017-07-22] MEDS: Simethicone 80 mg Chewtab PO PRN (18:05)
[2017-07-23 06:13] LABS: BASO % 0.8 % (0.0-2.0); EOS # 0.1 K/uL (0.0-0.7); EOS % 1.8 % (0.0-4.0); HEMATOCRIT 38.4 % (34.0-47.0); LYMPH # 0.9 K/uL (1.0-4.3); LYMPH % 16.4 % (20.0-40.0); MEAN CELL VOLUME 94.4 fl (81.0-99.0); MEAN CORPUSCULAR HEMOGLOBIN 31.5 pg (27.0-31.0); MEAN CORPUSCULAR HGB CONC 33.4 g/dL (33.0-37.0); MEAN PLATELET VOLUME 6.9 fl (7.2-11.7); MONO # 0.6 K/uL (0.0-0.8); MONO % 12.1 % (0.0-10.0); NEUT # 3.7 K/uL (1.8-7.0); NEUT % 68.9 % (50.0-75.0); NRBC % 0.1 % (0.0-0.0); RED CELL DISTRIBUTION WIDTH 14.2 % (11.5-14.5); WHITE BLOOD COUNT 5.4 K/uL (4.8-10.8)
[2017-07-23] MEDS: Meropenem 1 GM in Sodium Chloride 0.9% 100 ML IVPB SCH ×2 (08:20→20:28)
--- NOTE | 2017-07-23 11:27 | PCM.PYCHPN ---
Psychiatric Progress Note - Psychiatric Progress Note Patient seen today, length of contact: Patient evaluated, case discussed with team, chart reviewed, 35 min Patient Chief Complaint: "I'm okay" Problems Identified/Issues Discussed: Medicine consult appreciated. ID consult appreciated. Patient on Meropenem IV for UTI. Patient had improved sleep last night. She continues to have paranoia that someone is trying to harm her brother, she is less pressured about talking about it. She has poor insight and cognitive impairment. Medication Change: No Medical Record Reviewed: Yes Mental Status Examination - Cognitive Function Orientation: Person Memory: Impaired Concentration: Poor Association: Loose Fund of Knowledge: Poor Decription of patient's judgement and insights: Poor I/J - Mood Mood: Anxious - Affect Affect: Constricted - Speech Speech: Soft - Formal Thought Process Formal Thought Process: Delusions, Paranoia, Loosening of associations Psychotic Thoughts and Behaviors: +Paranoia - Suicidal Ideation Suicidal Ideation: No - Homicidal Ideation Homicidal Ideation: No Goal/Treatment Plan - Goal/Treatment Plan Need for Continued Stay: Remain at risks for inpatient hospitalization, Discharge may exacerbated symptoms, Severe functional impairment Progress Toward Problem(s) and Goals/Treatment Plan: Schizophrenia; r/o dementia; patient is acutely decompensated, psychotic w/ cognitive deficits and current UTI, on IV antibiotics -Continue Zyprexa 10 mg PO HS -Continue Meropenem for UTI -Continue Klonopin 0.25 mg PO QHS -Continue Remeron -Psychology, Medicine, ID consults appreciated Estimated Date of D/C: 07/28/17
[2017-07-23] MEDS: Simethicone 80 mg Chewtab PO PRN (12:20)
--- NOTE | 2017-07-23 21:13 | CP.PCM.PN ---
Subjective - Date & Time of Evaluation Date of Evaluation: 07/23/17 Time of Evaluation: 14:00 - Subjective Subjective: PAtient was seen and examined at bedside. Appears to be doing well. Denies any more urinary complaints, but is complaining of feeling "gassy" has not had a bowl movement in a few days. Denies any chest pain, SOB, nausea or vomiting. Objective - Vital Signs/Intake and Output Vital Signs (last 24 hours): Temp Pulse Resp BP Pulse Ox 98.2 F 83 20 117/68 99 07/23/17 15:52 07/23/17 15:52 07/23/17 15:52 07/23/17 15:52 07/23/17 15:52 - Medications Medications: Current Medications Acetaminophen (Tylenol 325mg Tab) 650 mg PO Q4 PRN PRN Reason: Pain, moderate (4-7) Last Admin: 07/23/17 11:31 Dose: 650 mg Al Hydrox/Mg Hydrox/Simethicone (Maalox Plus 30 Ml) 30 ml PO Q4 PRN PRN Reason: Dyspepsia Last Admin: 07/20/17 00:46 Dose: 30 ml Atorvastatin Calcium (Lipitor) 10 mg PO HS [facility] Last Admin: 07/22/17 21:09 Dose: 10 mg Bismuth Subsalicylate (Pepto-Bismol) 524 mg PO Q4 PRN PRN Reason: Diarrhea Clonazepam (Klonopin) 0.25 mg PO HS [facility] Last Admin: 07/22/17 21:09 Dose: 0.25 mg Meropenem 1 gm/ Sodium (Chloride) 100 mls @ 100 mls/hr IVPB Q12 JEISON PRN Reason: Protocol Last Admin: 07/23/17 20:28 Dose: 100 mls/hr Lactulose (Enulose) 10 gm PO DAILY PRN PRN Reason: Constipation Lorazepam (Ativan) 0.5 mg PO Q6 PRN PRN Reason: Anixety/Agitation Stop: 07/27/17 00:58 Last Admin: 07/21/17 02:40 Dose: 0.5 mg Magnesium Hydroxide (Milk Of Magnesia) 30 ml PO HS PRN PRN Reason: Constipation Mirtazapine (Remeron) 30 mg PO HS [facility] Last Admin: 07/22/17 21:09 Dose: 30 mg Olanzapine (Zyprexa) 10 mg PO HS JEISON Last Admin: 07/22/17 21:09 Dose: 10 mg Simethicone (Mylicon Chew Tab) 80 mg PO TID PRN PRN Reason: Flatulence Last Admin: 07/23/17 12:20 Dose: 80 mg - Labs Labs: 07/23/17 05:20 07/22/17 06:30 - Constitutional Appears: No Acute Distress - Head Exam Head Exam: NORMAL INSPECTION - Respiratory Exam Respiratory Exam: Clear to Ausculation Bilateral, NORMAL BREATHING PATTERN. absent: Wheezes - Cardiovascular Exam Cardiovascular Exam: REGULAR RHYTHM, +S1, +S2 - GI/Abdominal Exam GI & Abdominal Exam: Distended, Soft, Normal Bowel Sounds - Extremities Exam Extremities Exam: Normal Inspection. absent: Tenderness Assessment and Plan - Assessment and Plan (Free Text) Assessment: 1) UTI - ID on board - Patient is on Meropenum 2) Constipation - Enema ordered - Lactulose PRN
--- NOTE | 2017-07-24 08:31 | PCM.PYCHPN ---
Psychiatric Progress Note - Psychiatric Progress Note Patient seen today, length of contact: Patient evaluated, case discussed with team, chart reviewed, 35 min Patient Chief Complaint: "I'm okay" Problems Identified/Issues Discussed: Medicine consult appreciated. ID consult appreciated. Patient on Meropenem IV for UTI. Patient is improving clinically. She continues to have mild paranoia, but is less pressured about talking about it. She continues to report feeling anxious and we discussed increasing the clonazepam. She has poor insight and cognitive impairment. Medication Change: Yes (Increase Clonazepam to 0.5 mg PO HS) Medical Record Reviewed: Yes Consults ordered or reviewed: Psychology consult 07/20/17: Pt is a 76 year female well known to the health technical writer from her [facility] rehab admissions at . Pt referred to the health technical writer for cognitive testing. On the DRS , pt scored an overall score of 79. (125= = intact cognitive skills) She scored in Deficient Range on all tasks. Pt's Attention, Construction, Conceptualization, Memory and Initiation skills all fell in the Deficient Range. Note, patient resides with her brother who is at home throughout the day. Recommendation Homemaker services to assist the patient- Supervision to ensure safety Thank you for this referral Dr. Lopez ordered to evaluated neurocognitive function -Medicine consult- patient switched to IV Meropenem for UTI Mental Status Examination - Cognitive Function Orientation: Person Memory: Impaired Concentration: Poor Association: Loose Fund of Knowledge: Poor Decription of patient's judgement and insights: Poor I/J - Mood Mood: Anxious - Affect Affect: Constricted - Speech Speech: Soft - Formal Thought Process Formal Thought Process: Delusions, Paranoia, Loosening of associations Psychotic Thoughts and Behaviors: +mild chronic paranoia - Suicidal Ideation Suicidal Ideation: No - Homicidal Ideation Homicidal Ideation: No Goal/Treatment Plan - Goal/Treatment Plan Need for Continued Stay: Remain at risks for inpatient hospitalization Progress Toward Problem(s) and Goals/Treatment Plan: Schizophrenia; r/o dementia; patient is improving clinically w/ titration of medications and treatment of her UTI. -Continue Zyprexa 10 mg PO HS -Continue Meropenem for UTI -Increase Klonopin to 0.5 mg PO QHS -Continue Remeron -Psychology, Medicine, ID consults appreciated -Possible discharge tomorrow to home under the care of her brother Estimated Date of D/C: 07/25/17 - Smoking Cessation Smoking Cessation Initiated: No Reason for not providing: Not indicated
[2017-07-24] MEDS: Meropenem 1 GM in Sodium Chloride 0.9% 100 ML IVPB SCH ×2 (08:38→21:06)
[2017-07-24] MEDS: Docusate-Senna 50 mg-8.6 mg Tab PO SCH (21:05)
--- NOTE | 2017-07-25 08:54 | PCM.PYCHPN ---
Psychiatric Progress Note - Psychiatric Progress Note Patient seen today, length of contact: Patient evaluated, case discussed with team, chart reviewed, 35 min Patient Chief Complaint: "I'm okay" Problems Identified/Issues Discussed: Medicine consult appreciated. ID consult appreciated. Patient on Meropenem IV for UTI. Patient is improving clinically, but continues to have paranoia that someone is trying to harm her and her brother. She has improved sleep with the titration of clonazepam and seems less anxious at night. She has poor insight and cognitive impairment. Medication Change: No Medical Record Reviewed: Yes Consults ordered or reviewed: Psychology consult 07/20/17: Pt is a 76 year female well known to the consumer loan underwriter from her [facility] rehab admissions at . Pt referred to the consumer loan underwriter for cognitive testing. On the DRS , pt scored an overall score of 79. (125= = intact cognitive skills) She scored in Deficient Range on all tasks. Pt's Attention, Construction, Conceptualization, Memory and Initiation skills all fell in the Deficient Range. Note, patient resides with her brother who is at home throughout the day. Recommendation Homemaker services to assist the patient- Supervision to ensure safety Thank you for this referral Dr. Lopez ordered to evaluated neurocognitive function -Medicine consult- patient switched to IV Meropenem for UTI Mental Status Examination - Cognitive Function Orientation: Person Memory: Impaired Concentration: Poor Association: Loose Fund of Knowledge: Poor Decription of patient's judgement and insights: Poor I/J - Mood Mood: Anxious - Affect Affect: Constricted - Speech Speech: Soft - Formal Thought Process Formal Thought Process: Delusions, Paranoia, Loosening of associations Psychotic Thoughts and Behaviors: +paranoia - Suicidal Ideation Suicidal Ideation: No - Homicidal Ideation Homicidal Ideation: No Goal/Treatment Plan - Goal/Treatment Plan Need for Continued Stay: Remain at risks for inpatient hospitalization, Discharge may exacerbated symptoms Progress Toward Problem(s) and Goals/Treatment Plan: Schizophrenia; dementia; patient is improving clinically w/ titration of medications, but she continues to have paranoia. She continues treatment of her UTI. -Continue Zyprexa 10 mg PO HS -Continue Meropenem for UTI -Continue Klonopin 0.5 mg PO QHS -Continue Remeron -Psychology, Medicine, ID consults appreciated -Disposition planning- patient needs continued hospitalization for IV treatment of her UTI and continued paranoia; will discharge to home under that care of her brother once she is psychiatrically stable Estimated Date of D/C: 07/29/17 - Smoking Cessation Smoking Cessation Initiated: No Reason for not providing: Not indicated
[2017-07-25] MEDS: Meropenem 1 GM in Sodium Chloride 0.9% 100 ML IVPB SCH ×2 (09:14→21:14)
--- NOTE | 2017-07-25 11:27 | CP.PCM.PN ---
Subjective - Date & Time of Evaluation Date of Evaluation: 07/25/17 Time of Evaluation: 11:23 - Subjective Subjective: - Patient was seen and examined at bedside with Dr. Rivera. Patient seems to be doing well. Had a bowl movement yesterday. Still feels a little bloated. Denies any burning during urinating. Objective - Vital Signs/Intake and Output Vital Signs (last 24 hours): Temp Pulse Resp BP Pulse Ox 97.1 F L 71 18 126/71 99 07/25/17 05:49 07/25/17 05:49 07/25/17 05:49 07/25/17 05:49 07/23/17 15:52 - Medications Medications: Current Medications Acetaminophen (Tylenol 325mg Tab) 650 mg PO Q4 PRN PRN Reason: Pain, moderate (4-7) Last Admin: 07/24/17 17:13 Dose: 650 mg Al Hydrox/Mg Hydrox/Simethicone (Maalox Plus 30 Ml) 30 ml PO Q4 PRN PRN Reason: Dyspepsia Last Admin: 07/20/17 00:46 Dose: 30 ml Atorvastatin Calcium (Lipitor) 10 mg PO [facility] Last Admin: 07/24/17 21:05 Dose: 10 mg Bismuth Subsalicylate (Pepto-Bismol) 524 mg PO Q4 PRN PRN Reason: Diarrhea Clonazepam (Klonopin) 0.5 mg PO HS [facility] Last Admin: 07/24/17 21:05 Dose: 0.5 mg Clonazepam (Klonopin) 0.25 mg PO DAILY [facility] Last Admin: 07/25/17 10:02 Dose: 0.25 mg Docusate Sodium (Colace) 100 mg PO BID [facility] Last Admin: 07/25/17 08:58 Dose: 100 mg Meropenem 1 gm/ Sodium (Chloride) 100 mls @ 100 mls/hr IVPB Q12 [facility] PRN Reason: Protocol Last Admin: 07/25/17 09:14 Dose: 100 mls/hr Lactulose (Enulose) 10 gm PO DAILY PRN PRN Reason: Constipation Lorazepam (Ativan) 0.5 mg PO Q6 PRN PRN Reason: Anixety/Agitation Stop: 07/27/17 00:58 Last Admin: 07/24/17 09:53 Dose: 0.5 mg Magnesium Hydroxide (Milk Of Magnesia) 30 ml PO HS PRN PRN Reason: Constipation Mirtazapine (Remeron) 30 mg PO HS [facility] Last Admin: 07/24/17 21:05 Dose: 30 mg Olanzapine (Zyprexa) 10 mg PO HS [facility] Last Admin: 07/24/17 21:05 Dose: 10 mg Senna/Docusate Sodium (Senokot S 50 Mg-8.6 Mg) 2 tab PO HS [facility] Last Admin: 07/24/17 21:05 Dose: 2 tab Simethicone (Mylicon Chew Tab) 80 mg PO TID PRN PRN Reason: Flatulence Last Admin: 07/23/17 12:20 Dose: 80 mg - Labs Labs: 07/23/17 05:20 07/22/17 06:30 - Constitutional Appears: No Acute Distress - Head Exam Head Exam: NORMAL INSPECTION - Eye Exam Eye Exam: Normal appearance - Respiratory Exam Respiratory Exam: Clear to Ausculation Bilateral. absent: Rales, Rhonchi, Wheezes - Cardiovascular Exam Cardiovascular Exam: REGULAR RHYTHM, +S1, +S2 - GI/Abdominal Exam GI & Abdominal Exam: Soft, Tenderness, Normal Bowel Sounds Additional comments: slight generalized tenderness - Extremities Exam Extremities Exam: Normal Capillary Refill, Normal Inspection - Neurological Exam Neurological Exam: Alert, Awake, CN II-XII Intact - Skin Skin Exam: Normal Color, Warm Assessment and Plan - Assessment and Plan (Free Text) Assessment: 1) UTI - ID on board - Patient is on Meropenum 2) Constipation - Colace BID - Senokot s : 2 tabs HS
[2017-07-25] MEDS: Docusate-Senna 50 mg-8.6 mg Tab PO SCH (21:13)
[2017-07-26] MEDS: Meropenem 1 GM in Sodium Chloride 0.9% 100 ML IVPB SCH ×2 (08:52→21:13)
--- NOTE | 2017-07-26 11:02 | PCM.PYCHPN ---
Psychiatric Progress Note - Psychiatric Progress Note Patient seen today, length of contact: Patient evaluated, case discussed with team, chart reviewed, 35 min Patient Chief Complaint: "I'm okay" Problems Identified/Issues Discussed: Medicine consult appreciated. ID consult appreciated. Patient on Meropenem IV for UTI. Patient is improving clinically, she continues to have paranoia, but seems less anxious and pressured about the paranoid thoughts. She continues to have improved sleep. She has poor insight and cognitive impairment. Medication Change: No Medical Record Reviewed: Yes Consults ordered or reviewed: Psychology consult 07/20/17: Pt is a 76 year female well known to the communications writer from her [facility] [place] rehab admissions at . Pt referred to the communications writer for cognitive testing. On the DRS , pt scored an overall score of 79. (125= = intact cognitive skills) She scored in Deficient Range on all tasks. Pt's Attention, Construction, Conceptualization, Memory and Initiation skills all fell in the Deficient Range. Note, patient resides with her brother who is at home throughout the day. Recommendation Homemaker services to assist the patient- Supervision to ensure safety Thank you for this referral Dr. Lopez ordered to evaluated neurocognitive function -Medicine consult- patient switched to IV Meropenem for UTI Mental Status Examination - Cognitive Function Orientation: Person, Place, Situation Memory: Impaired Concentration: Poor Association: Loose Fund of Knowledge: Poor Decription of patient's judgement and insights: Poor I/J - Mood Mood: Anxious - Affect Affect: Constricted - Speech Speech: Soft - Formal Thought Process Formal Thought Process: Paranoia, Loosening of associations Psychotic Thoughts and Behaviors: +paranoia - Suicidal Ideation Suicidal Ideation: No - Homicidal Ideation Homicidal Ideation: No Goal/Treatment Plan - Goal/Treatment Plan Need for Continued Stay: Remain at risks for inpatient hospitalization, Discharge may exacerbated symptoms Progress Toward Problem(s) and Goals/Treatment Plan: Schizophrenia; dementia; patient is improving clinically w/ titration of medications, but she continues to have paranoia. She continues treatment of her UTI. -Continue Zyprexa 10 mg PO HS -Continue Meropenem for UTI -Continue Klonopin 0.25 mg PO AM/ 0.5 mg PO QHS -Continue Remeron -Psychology, Medicine, ID consults appreciated -Disposition planning Estimated Date of D/C: 07/29/17
[2017-07-26] MEDS: Docusate-Senna 50 mg-8.6 mg Tab PO SCH (21:12)
[2017-07-27] MEDS: Meropenem 1 GM in Sodium Chloride 0.9% 100 ML IVPB SCH ×2 (08:17→21:03)
--- NOTE | 2017-07-27 09:02 | PCM.PYCHPN ---
Psychiatric Progress Note - Psychiatric Progress Note Patient seen today, length of contact: Patient evaluated, case discussed with team, chart reviewed, 35 min Patient Chief Complaint: "I'm worried I'm going to ." Problems Identified/Issues Discussed: Medicine consult appreciated. ID consult appreciated. Patient on Meropenem IV for UTI. Patient continue to be anxious and preoccupied with her overall health, but denies acute paranoia. She continues to have improved sleep. She has poor insight and cognitive impairment. Medication Change: Yes (Increase Klonopin to 0.5 mg PO Q12) Medical Record Reviewed: Yes Consults ordered or reviewed: Psychology consult 07/20/17: Pt is a 76 year female well known to the advertising copy writer from her [facility] rehab admissions at . Pt referred to the advertising copy writer for cognitive testing. On the DRS , pt scored an overall score of 79. (125= = intact cognitive skills) She scored in Deficient Range on all tasks. Pt's Attention, Construction, Conceptualization, Memory and Initiation skills all fell in the Deficient Range. Note, patient resides with her brother who is at home throughout the day. Recommendation Homemaker services to assist the patient- Supervision to ensure safety Thank you for this referral Dr. Lopez ordered to evaluated neurocognitive function -Medicine consult- patient switched to IV Meropenem for UTI Mental Status Examination - Cognitive Function Orientation: Person, Place, Situation Memory: Impaired Concentration: Poor Association: Loose Fund of Knowledge: Poor Decription of patient's judgement and insights: Poor I/J - Mood Mood: Anxious - Affect Affect: Constricted - Speech Speech: Soft - Formal Thought Process Formal Thought Process: Loosening of associations Psychotic Thoughts and Behaviors: Denies AH/VH - Suicidal Ideation Suicidal Ideation: No - Homicidal Ideation Homicidal Ideation: No Goal/Treatment Plan - Goal/Treatment Plan Need for Continued Stay: Remain at risks for inpatient hospitalization, Discharge may exacerbated symptoms Progress Toward Problem(s) and Goals/Treatment Plan: Schizophrenia; dementia; patient is improving clinically w/ titration of medications, but she continues to anxious. She continues treatment of her UTI. -Continue Zyprexa 10 mg PO HS -Continue Meropenem for UTI -Increase Klonopin to 0.5 mg PO Q12 -Continue Remeron -Psychology, Medicine, ID consults appreciated -Disposition planning Estimated Date of D/C: 07/29/17
[2017-07-27] MEDS: Docusate-Senna 50 mg-8.6 mg Tab PO SCH (21:04)
--- NOTE | 2017-07-28 10:03 | PCM.PYCHPN ---
Psychiatric Progress Note - Psychiatric Progress Note Patient seen today, length of contact: Patient evaluated, case discussed with team, chart reviewed, 35 min Patient Chief Complaint: "I'm okay" Problems Identified/Issues Discussed: Medicine consult appreciated. ID consult appreciated. Patient on Meropenem IV for UTI. Patient is less anxious, denies acute paranoia. She continues to have improved sleep. She has poor insight and cognitive impairment. Medication Change: No Medical Record Reviewed: Yes Consults ordered or reviewed: Psychology consult 07/20/17: Pt is a 76 year female well known to the check writer from her [facility] rehab admissions at . Pt referred to the check writer for cognitive testing. On the DRS , pt scored an overall score of 79. (125= = intact cognitive skills) She scored in Deficient Range on all tasks. Pt's Attention, Construction, Conceptualization, Memory and Initiation skills all fell in the Deficient Range. Note, patient resides with her brother who is at home throughout the day. Recommendation Homemaker services to assist the patient- Supervision to ensure safety Thank you for this referral Dr. Lopez ordered to evaluated neurocognitive function -Medicine consult- patient switched to IV Meropenem for UTI Mental Status Examination - Cognitive Function Orientation: Person, Place, Situation Memory: Impaired Concentration: Poor Association: Loose Fund of Knowledge: Poor Decription of patient's judgement and insights: Chronic poor I/J due to cognitive impairment - Mood Mood: Anxious - Affect Affect: Constricted - Speech Speech: Soft - Formal Thought Process Formal Thought Process: Loosening of associations Psychotic Thoughts and Behaviors: Denies AH/VH - Suicidal Ideation Suicidal Ideation: No - Homicidal Ideation Homicidal Ideation: No Goal/Treatment Plan - Goal/Treatment Plan Need for Continued Stay: Remain at risks for inpatient hospitalization, Discharge may exacerbated symptoms Progress Toward Problem(s) and Goals/Treatment Plan: Schizophrenia; dementia; patient is improving clinically and will likely be discharged to home tomorrow under the care of her brother. -Continue Zyprexa 10 mg PO HS -Stop Meropenem -Continue Klonopin 0.5 mg PO Q12 -Continue Remeron -Psychology, Medicine, ID consults appreciated -Disposition planning Estimated Date of D/C: 07/29/17
[2017-07-28] MEDS: Meropenem 1 GM in Sodium Chloride 0.9% 100 ML IVPB SCH (12:21)
[2017-07-28 14:45] VITALS: O2SAT 96
--- NOTE | 2017-07-28 15:13 | PCM.BM ---
Treatment Plan Problems - Problems identified on initial assessmt Auditory Hallucinations Date Initiated: 07/13/17 Time Initiated: 00:16 Assessment reference: NA Status: Active Visual Hallucinations Date Initiated: 07/13/17 Time Initiated: 00:16 Assessment reference: NA Status: Active Treatment assets and liabiliti Patient Assests: adapts well, cooperative, good support system, negotiates basic needs Patient Liabilities: medical problems, imparied memory, visual impairment - Milieu Protocol Maintain good personal hygiene: daily Encourage regular showers, daily Remind patient to perform daily oral care, daily Assist patient to perform ADL's Maintain personal safety: every shift Educate patient to report safety concerns to staff, every shift Monitor environment for contraband/sharps Medication safety: Monitor for expected outcome, potential side effects: every shift, Assess barriers to learning: every shift, Assess readiness for medication education: every shift Milieu Narrative: Schizophrenia; dementia; patient is improving clinically and will likely be discharged to home tomorrow under the care of her brother. -Continue Zyprexa 10 mg PO HS -Stop Meropenem -Continue Klonopin 0.5 mg PO Q12 -Continue Remeron -Psychology, Medicine, ID consults appreciated -Disposition planning Family Contact Family contact: Patient agrees to contact Family contact name: Song Dorman (brother) - Outside Agency Dr. Butch Lr MD Care involvment: Information-sharing Agency contact number: [phone] - Goals for Treatment Patient goals for treatment: Pt to be encouraged to attend activity and clinical groups 3-5x per week to decrease symptoms of paranoia, delusions and employ reality testing. Pt to be encouraged to participate in group milieu to develop coping skills to reduce psychiatric hospitalizations and further decompensation. Coordinate discharge resources needs by providing referral for psychiatric treatment follow up in the community. Discharge/Continuing Care - Education Needs Education Needs: Family Medication, Family Diagnosis/Disease Process, Family Coping Skills, Family Placement options, Family Community resources, Family Personal Hygiene/Grooming, Family Aftercare Safety Plan, Patient Medication, Patient Diagnosis/Disease Process, Patient Coping Skills, Patient Placement options, Patient Community resources, Patient Personal Hygiene/Grooming, Patient Aftercare Safety Plan - Discharge Discharge Criteria: Tolerates medication w/o severe side effects, Free of paranoid thoughts, Normal sleep pattern, Ability to care for self, Reduction of target symptoms Discharge to:: Home, With Family - Additional Comments 07/14/17 14:53 Pt seen and discussed in team meeting. Reason for admission discussed. Pt's progress and bx on unit discussed. Pt's medical and social issues discussed. Pt' s medications reviewed and discussed. Pt presents with disorganized and paranoid thought process. Pt is nonlinear and rambling speech. Pt requires frequent re-direction and re-assurance. Tx plan reviewed and discussed, pt is agreeable. Pt signed autho for press writer to contact Song cardoso for additional collateral information. - Treatment Team Participation Patient/Family/SO Statement: Schizophrenia; dementia; patient is improving clinically and will likely be discharged to home tomorrow under the care of her brother. -Continue Zyprexa 10 mg PO HS -Stop Meropenem -Continue Klonopin 0.5 mg PO Q12 -Continue Remeron -Psychology, Medicine, ID consults appreciated -Disposition planning Discussed with Family/SO: No (Will be contacted via telephone) Was Patient/Family/SO present at Treatment Team Meeting: Yes Treatment Plan Review - Problem Auditory Hallucinations Date Initiated: 07/28/17 Time Initiated: 15:11 Progress toward outcomes: resolved Visual Hallucinations Date Initiated: 07/28/17 (N) Time Initiated: 00:16 Progress toward outcomes: resolved - Discharge / Continuing Care Discharge to:: With Family Behavioral Health Services: Home health care (Pt verbalized agreement to [facility]), Other (Outpatient Mental Health F/U) Health Needs: Follow up care/test, Doctor appointments, Medications/Rx, Recreational/Social
[2017-07-28 15:41] VITALS: TEMP 98.1
[2017-07-28] MEDS: Docusate-Senna 50 mg-8.6 mg Tab PO SCH (21:26)
[2017-07-29 06:09] VITALS: BP 115/54; PULSE 67; RESP 18
--- NOTE | 2017-07-29 11:10 | CP.PCM.PN ---
Subjective - Date & Time of Evaluation Date of Evaluation: 07/29/17 Time of Evaluation: 08:00 - Subjective Subjective: Patient seen at bedside with Dr. Rivera. Patient is resting comfortably in bed. Has been recieving medication for constipation, but continues to have constipation. Have advised nurse to give patient Lactulose before she leaves. Will give script for Linzess, since patient is expected for d/c today. - Patient denies anymore burning on micturation. Has remained Afebrile Objective - Vital Signs/Intake and Output Vital Signs (last 24 hours): Temp Pulse Resp BP Pulse Ox 98.1 F 67 18 115/54 L 96 07/29/17 06:00 07/29/17 06:00 07/29/17 06:00 07/29/17 06:00 07/28/17 14:44 - Medications Medications: Current Medications Atorvastatin Calcium (Lipitor) 10 mg PO HS [facility] Last Admin: 07/28/17 21:28 Dose: 10 mg Clonazepam (Klonopin) 0.25 mg PO Q12 [facility] Last Admin: 07/29/17 08:44 Dose: 0.25 mg Docusate Sodium (Colace) 100 mg PO BID [facility] Last Admin: 07/29/17 08:45 Dose: 100 mg Lactulose (Enulose) 10 gm PO DAILY PRN PRN Reason: Constipation Last Admin: 07/29/17 09:54 Dose: 10 gm Mirtazapine (Remeron) 30 mg PO HS [facility] Last Admin: 07/28/17 21:27 Dose: 30 mg Olanzapine (Zyprexa) 10 mg PO HS [facility] Last Admin: 07/28/17 21:27 Dose: 10 mg Senna/Docusate Sodium (Senokot S 50 Mg-8.6 Mg) 2 tab PO HS [facility] Last Admin: 07/28/17 21:26 Dose: 2 tab Simethicone (Mylicon Chew Tab) 80 mg PO TID PRN PRN Reason: Flatulence Last Admin: 07/23/17 12:20 Dose: 80 mg - Labs Labs: 07/23/17 05:20 07/22/17 06:30 - Constitutional Appears: No Acute Distress - Head Exam Head Exam: NORMAL INSPECTION - Eye Exam Eye Exam: Normal appearance - Respiratory Exam Respiratory Exam: Clear to Ausculation Bilateral, NORMAL BREATHING PATTERN. absent: Rhonchi, Wheezes - Cardiovascular Exam Cardiovascular Exam: REGULAR RHYTHM, +S1, +S2 - GI/Abdominal Exam GI & Abdominal Exam: Soft, Tenderness (slight generalized tenderness), Normal Bowel Sounds - Extremities Exam Extremities Exam: Normal Inspection - Neurological Exam Neurological Exam: Alert, Awake, Oriented x3 Assessment and Plan - Assessment and Plan (Free Text) Assessment: 1) UTI ( resolved) - ID on board - patient completed course of meropenum for UTI 2) Constipation - Colace BID - Senokot s : 2 tabs HS - Patient has been given a script for Linzess on discharge.
--- NOTE | 2017-07-29 11:32 | PCM.PYCHDC ---
Mental Status Examination - Mental Status Examination Orientation: Person, Place Memory: Impaired Mood: Neutral Affect: Broad Speech: Appropriate Attention: Poor Concentration: Poor Association: Loose Fund of Knowledge: Poor Formal Thought Process: Loosening of associations Description of patient's judgement and insight: Chronic poor I/J due to cognitive impairment Psychotic Thoughts and Behaviors: Denies AH/VH Suicidal Ideation: No Current Homicidal Ideation?: No Discharge Summary - Discharge Note Reason for Hospitalization: As per initial HPI note: "This is the 1st 3NS admission for this 76 yr old female with h/o schizophrenia seeing dr kim who referred pt to [facility] for psych evaluation as pt has been increasingly confused,disorganized and delusional and also diagnosed with UTI which has further worsened the psychosis .pt was given one dose of macrobid at [facility].pt is currently presribed zyprexa 5mg hs and remeron 30 mg hs" Psychiatric History (includes Medical, Family, Personal Hx): for schizophrenia Consultations:: List each consultation separately and include: 1. Reason for request. 2. Findings. 3. Follow-up Consultations: Psychology consult 07/20/17: Pt is a 76 year female well known to the blog writer from her [facility] rehab admissions at . Pt referred to the blog writer for cognitive testing. On the DRS , pt scored an overall score of 79. (125= = intact cognitive skills) She scored in Deficient Range on all tasks. Pt's Attention, Construction, Conceptualization, Memory and Initiation skills all fell in the Deficient Range. Note, patient resides with her brother who is at home throughout the day. Recommendation Homemaker services to assist the patient- Supervision to ensure safety Thank you for this referral Dr. Lopez ordered to evaluated neurocognitive function -Medicine consult- patient switched to IV Meropenem for UTI Summary of Hospital Course include:: 1. Description of specific treatment plan utilized for patients during their course of treatmen. 2. Summarize the time- course for resolution of acute symptoms and/or regressed behaviors. 3. Describe issues identified and worked on during hospitalization. 4. Describe medication utilized. 5. Describe medical problems identified and treated. 6. Reassessment of suicide risk Summary of Hospital Course: Patient was admitted to the geriatric psychiatry unit. She was seen by medicine and ID consult and treated for recurrent UTI. She was seen by psychology consult and found to have significant cognitive deficits/ dementia. Patient initially presented w/ acute paranoia, delusions and anxiety, which have now resolved after treatment with Zyprexa 10 mg PO HS, Clonazepam 0.25 mg PO Q12 hr and Remeron 30 mg PO HS. Patient is psychiatrically stable to return home under the care of her brother. - Diagnosis (1) Schizophrenia Current Visit: Yes Status: Acute - Final Diagnosis (DSM 5) Condition upon Discharge: STABLE DSM 5: Schizophrenia, Genereralized Anxiety Disorder, Dementia Disposition: HOME/ ROUTINE Follow-up Treatment Plan: Schizophrenia; Generalized Anxiety Disorder; Dementia; patient is psychiatrically stable for discharge, she is at her baseline. -Continue Zyprexa 10 mg PO HS -Continue Klonopin 0.5 mg PO Q12 -Continue Remeron 30 mg PO HS -Psychology, Medicine, ID consults appreciated -Patient's medical medications as per medicine consult recommendations -Discharge to home under the care of her brother Prescriptions/Medication Reconciliation: clonazePAM HALF TAB [Klonopin- HALF TAB] 0.25 mg PO Q12 #60 tab Docusate [Colace] 100 mg PO BID #60 cap Docusate Sodium/Sennosides A [Senokot S 50 MG-8.6 MG] 2 tab PO HS #60 tab Linaclotide [Linzess] 72 mcg PO DAILY #30 capsule Mirtazapine [Remeron] 30 mg PO HS #30 tab OLANZapine [Zyprexa] 10 mg PO HS #30 tab Rosuvastatin Calcium 40 mg PO HS #30 tablet - Smoking Cessation Smoking Cessation Medication prescribed: No Reason for not providing: Not indicated - Antipsychotic Medications Pt discharged on 2 or more routine antipsychotic medications: No
== END 2017-07-29 14:16 | disposition home health service (06) | DRG 885 ==
LOC: H.ER 21:47 → H.STEP 22:03 → H.ER 22:12 → H.STEP 07-24 22:00
PROVIDERS: ADMIT Psychiatry & Neurology Psychiatry; ATTEND Psychiatry & Neurology Psychiatry
PROC: GZHZZZZ Group Psychotherapy (ICD-10-PCS; principal; 2017-07-12)
PROC: GZ58ZZZ Individual Psychotherapy, Cognitive-Behavioral (ICD-10-PCS; 2017-07-12)
DX: F20.0 Paranoid schizophrenia (principal); F03.90 Unspecified dementia, unspecified severity, without behavioral disturbance, psychotic disturbance, mood disturbance, and anxiety; N39.0 Urinary tract infection, site not specified; F05 Delirium due to known physiological condition; F41.1 Generalized anxiety disorder; B96.4 Proteus (mirabilis) (morganii) as the cause of diseases classified elsewhere; F32.9 Major depressive disorder, single episode, unspecified; E78.5 Hyperlipidemia, unspecified; G47.00 Insomnia, unspecified; K59.00 Constipation, unspecified; M06.9 Rheumatoid arthritis, unspecified; M81.0 Age-related osteoporosis without current pathological fracture; J45.909 Unspecified asthma, uncomplicated; Z16.30 Resistance to unspecified antimicrobial drugs; Z88.6 Allergy status to analgesic agent; Z87.440 Personal history of urinary (tract) infections